=== PATIENT | male | born 1990 | race Two or more races ===

== ENCOUNTER 2021-06-12 14:35 | Emergency (ER) | payer SELFPAY ==
[~2021-06-12] VITALS: Ht 152.4 cm; Wt 63.5 kg
[2021-06-12] MEDS ORDERED: IBUPROFEN 600 MG TABLET ONE (15:12)
[2021-06-12] MEDS ORDERED: IBUPROFEN 600 MG TABLET PO ONE (15:15)
[2021-06-12 15:26] VITALS: BP 132/82
--- NOTE | 2021-06-12 15:26 | NUR ---
Patient discharged to home in stable condition. Written and verbal after care instructions given. Patient verbalizes understanding of instructions. Stressed follow up or return to ER for worsening s/s.
== END 2021-06-12 15:28 | disposition home or self-care (01) ==
LOC: ER 14:38
DX: S13.4XXA Sprain of ligaments of cervical spine, initial encounter (principal); R51.9 Headache, unspecified; V49.59XA Passenger injured in collision with other motor vehicles in traffic accident, initial encounter; Y92.415 Exit ramp or entrance ramp of street or highway as the place of occurrence of the external cause
CPT/HCPCS: A4663